=== PATIENT | male | born 1960 | race Caucasian/White ===

== ENCOUNTER 2022-05-17 15:51 | Outpatient (CLI) | payer BC, SELFPAY ==
[2022-05-18 15:38] LABS: Strep A DNA Probe* Not Detected (No Detected)
== END 2022-05-17 15:52 | disposition home or self-care (01) ==
LOC: KYNREF 15:52
PROVIDERS: PCP Nurse Practitioner Family; Visit Provider Nurse Practitioner Family
DX: J02.9 Acute pharyngitis, unspecified (principal); R05.9 Cough, unspecified
CPT/HCPCS: 87651

== ENCOUNTER 2024-10-24 10:41 | Outpatient (CLI) | payer BC, SELFPAY ==
[2024-10-24 14:00] LABS: Strep A DNA Probe* NOT DETECTED (Not Detectd)
[2024-10-24 14:12] LABS: PCR FLU A Negative PCR FLU A (Negative); PCR FLU B Negative PCR FLU B (Negative); PCR RSV Negative PCR RSV (Negative); SARS PCR* Negative SARS-CoV-2 (Negative)
== END 2024-10-24 10:42 | disposition home or self-care (01) ==
PROVIDERS: PCP Physician Assistant; Visit Provider Nurse Practitioner Family
DX: J11.1 Influenza due to unidentified influenza virus with other respiratory manifestations (principal); J02.9 Acute pharyngitis, unspecified
CPT/HCPCS: 87631; 87651